=== PATIENT | female | born 1955 | race Caucasian/White ===

== ENCOUNTER 2017-01-01 07:26 | Emergency (ER) | payer OTHER ==
[~2017-01-01] VITALS: Ht 167.6 cm; Wt 60.3 kg
[~2017-01-01 07:26] MED LIST: CYCL5TAB PO; HORMONES; HYDR-2758 PO; KETO10TA PO; ONDA4TAB12 PO; THYR16.2 PO
--- NOTE | 2017-01-01 08:01 | PHYS DOC ---
Past History Past Medical History: Other Past Surgical History: Appendectomy, Tonsillectomy, Other Alcohol Use: None Drug Use: None Adult General Chief Complaint Chief Complaint: PAIN ON URINATION HPI HPI 61-year-old female presenting with suprapubic abdominal pain. She has a history of urinary tract infections. She reports having a urinary tract infection prior and was treated with Macrobid which she just finished. She continues to have symptoms of burning pain on urination and increased urinary frequency. She also reports vaginal itchiness. Review of systems is negative for chest pain shortness of breath fevers chills nausea vomiting. All other review of systems is negative unless otherwise noted in history of present illness. ED course: 61-year-old female presenting with suprapubic abdominal pain and signs and symptoms suggestive of urinary tract infection. Afebrile and otherwise vital signs are unremarkable. Patient was given Diflucan. Urinalysis obtained. The patient was then discharged home in stable condition to follow up with their primary care physician over the next 2-3 days. They were to return if their symptoms worsened or if they were concerned for any reason. Face-to- face discharge instructions and return precautions were given. Patient's questions were answered to their satisfaction. Patient is comfortable plan. Review of Systems Review of Systems SEE ABOVE. Current Medications Current Medications Current Medications Medications (Trade) Dose Ordered Sig/Robert Start Time Stop Time Status Last Admin Dose Admin Fluconazole (Diflucan) 150 mg 1X ONCE 01/01/17 08:00 01/01/17 08:01 UNV Allergies Allergies Allergies Coded Allergies Type Severity Reaction Last Updated Verified Sulfa (Sulfonamide Antibiotics) Allergy Intermediate 05/03/14 Yes latex Allergy Intermediate 12/01/14 Yes Physical Exam Physical Exam SEE ABOVE Constitutional: Well developed, well nourished, no acute distress, non-toxic appearance. [] HENT: Normocephalic, atraumatic, bilateral external ears normal, oropharynx moist, no oral exudates, nose normal. [] Eyes: PERRLA, EOMI, conjunctiva normal, no discharge. [] Neck: Normal range of motion, no tenderness, supple, no stridor. [] Cardiovascular:Heart rate regular rhythm, no murmur [] Lungs & Thorax: Bilateral breath sounds clear to auscultation [] Abdomen: Bowel sounds normal, soft, no tenderness, no masses, no pulsatile masses. nontender negative McBurney's point. Skin: Warm, dry, no erythema, no rash. [] Back: No tenderness, no CVA tenderness. [] Extremities: No tenderness, no cyanosis, no clubbing, ROM intact, no edema. [] Neurologic: Alert and oriented X 3, normal motor function, normal sensory function, no focal deficits noted. [] Psychologic: Affect normal, judgement normal, mood normal. [] EKG EKG [] Radiology/Procedures Radiology/Procedures [] Course & Med Decision Making Course & Med Decision Making Pertinent Labs and Imaging studies reviewed. (See chart for details) [] Dragon Disclaimer Dragon Disclaimer This electronic medical record was generated, in whole or in part, using a voice recognition dictation system. Departure Departure: Impression: Primary Impression: Dysuria Disposition: HOME, SELF-CARE Condition: STABLE Referrals: DORA PERRY MD (PCP) Additional Instructions: Thank you for allowing us to participate in your care today. Followup with your primary care physician in 3 days if your symptoms do not improve. Call your Primary Doctor tomorrow and inform them of your visit today. If you do not have a primary care provider you can ask for a list of our primary care providers. Return to the emergency department you have any new or concerning findings. This should be evaluated by the primary care physician and any necessary consulting services for continued management within a few days after discharge. Return to emergency room if you have any new or concerning symptoms including but not limited to fever, chills, nausea, vomiting, intractable pain, any new rashes, chest pain, shortness of air, uncontrolled bleeding, difficulty breathing, and/or vision loss. Scripts Cefdinir (CEFDINIR) 300 Mg Capsule 1 CAP PO BID, #14 CAP Prov: JIM HERNANDEZ MD 01/01/17 JIM HERNANDEZ MD Jan 01, 2017 08:01
[2017-01-01 08:09] LABS: BACTERIA,URINE FEW /HPF (0-FEW); BILIRUBIN,URINE NEG (NEG); CLARITY,URINE CLEAR; COLOR,URINE YELLOW; GLUCOSE,URINE NEG (NEG); NITRITE,URINE NEG (NEG); SQUAMOUS EPITHELIAL CELL,UR OCC /LPF; UROBILINOGEN,URINE 0.2 mg/dL (0.2 mg/dL)
[2017-01-01] MEDS ORDERED: FLUCONAZOLE 100 MG TABLET. PO ONE (08:15)
[2017-01-01] MEDS ORDERED: CEFD300C PO (08:15)
[2017-01-01 08:29] VITALS: BP 134/95
== END 2017-01-01 08:30 | disposition home or self-care (01) ==
LOC: ER 07:26
DX: R30.0 Dysuria (principal); R35.0 Frequency of micturition; R10.30 Lower abdominal pain, unspecified; Z90.49 Acquired absence of other specified parts of digestive tract; Z87.440 Personal history of urinary (tract) infections; Z88.2 Allergy status to sulfonamides; Z91.040 Latex allergy status
CPT/HCPCS: 81001; 99283

== ENCOUNTER 2017-09-19 18:02 | Emergency (ER) | payer OTHER ==
[~2017-09-19] VITALS: Ht 167.6 cm; Wt 59.9 kg
[~2017-09-19 18:02] MED LIST changes: +CEFD300C PO
--- NOTE | 2017-09-19 18:05 | ED.ADGEN ---
Past History Past Medical History: Hypothyroid, UTI, Other Past Surgical History: Appendectomy, Tonsillectomy, Other Alcohol Use: None Drug Use: None Adult General Chief Complaint Chief Complaint ".. I get urinary tract infections.. I have chronic cystitis... but I was trying not to take antibiotics... This all started on ... but my symptoms have gotten worse .. and much worse on Wednesday... but now every thing gil when I pee... and I got fevers and chills.. and I ache..." HPI HPI Patient is a 62 year old female who presents with above hx and complaints myalgia, malaise, arthralgia, dysuria and hx + UTI by home kit. Pt. has hx of chronic cystitis. Pt. Also give hx of porphyria, multiple parasitic disease, and frequent yeast infections. Patient denies any history of specific immunosuppression or HIV. No recent travel, or specific ill contacts.. Patient normally follows with Dr. Zamora, and Dr. Jasmine. Review of Systems Review of Systems Constitutional: History of fever or chills [] Eyes: Denies change in visual acuity, redness, or eye pain [] HENT: Denies nasal congestion or sore throat [] Respiratory: Denies cough or shortness of breath [] Cardiovascular: No additional information not addressed in HPI [] GI: History of abdominal pain, nausea,. Denies vomiting, bloody stools or diarrhea [] : History of dysuria or hematuria [] Musculoskeletal: Denies back pain or joint pain [] Integument: Denies rash or skin lesions [] Neurologic: Denies headache, focal weakness or sensory changes [] Endocrine: Denies polyuria or polydipsia [] All other systems were reviewed and found to be within normal limits, except as documented in this note. Family History Family History Noncontributory Current Medications Current Medications Current Medications Medications (Trade) Dose Ordered Sig/Robert Start Time Stop Time Status Last Admin Dose Admin Acetaminophen/ Hydrocodone Bitart (Lortab 5/325) 2 tab 1X ONCE 09/19/17 18:15 09/19/17 18:31 DC 09/19/17 18:55 2 TAB Ceftriaxone Sodium 1 gm/ Sodium Chloride 50 ml @ 100 mls/hr 1X ONCE 09/19/17 18:15 09/19/17 18:44 DC 09/19/17 18:53 100 MLS/HR Ceftriaxone Sodium (Rocephin) 1 gm STK-MED ONCE 09/19/17 18:47 09/19/17 18:49 DC Fluconazole (Diflucan) 100 mg 1X ONCE 09/19/17 18:30 09/19/17 18:31 DC Lactated Ringer's 1,000 ml @ 1,000 mls/hr Q1H 09/19/17 18:12 09/19/17 19:11 DC 09/19/17 18:34 1,000 MLS/HR Ondansetron HCl (Zofran) 4 mg 1X ONCE 09/19/17 18:15 09/19/17 18:31 DC 09/19/17 18:53 4 MG Sodium Chloride 50 ml @ As Directed STK-MED ONCE 09/19/17 18:47 09/19/17 18:48 DC Allergies Allergies Allergies Coded Allergies Type Severity Reaction Last Updated Verified Sulfa (Sulfonamide Antibiotics) Allergy Intermediate 05/03/14 Yes latex Allergy Intermediate 12/01/14 Yes Physical Exam Physical Exam Constitutional: Moderately acute distress, non-toxic appearance. [] HENT: Normocephalic, atraumatic, bilateral external ears normal, oropharynx moist, no oral exudates, nose normal. [] Eyes: PERRLA, EOMI, conjunctiva normal, no discharge. []Glasses Neck: Normal range of motion, no tenderness, supple, no stridor. [] Cardiovascular: Tachycardia Heart rate regular rhythm, no murmur [] Lungs & Thorax: Bilateral breath sounds equal at apexes to auscultation [] Abdomen: Bowel sounds normal, soft, lower pelvic tenderness, no masses, no pulsatile masses. [Surgery scar.. Declines rectal or vaginal exam at this time. Skin: Warm, dry, no erythema, no rash. [] Back: No tenderness, no CVA tenderness. [] Extremities: No tenderness, no cyanosis, no clubbing, ROM intact, no edema. [] Neurologic: Alert and oriented X 3, normal motor function, normal sensory function, no focal deficits noted. [] Psychologic: Anxious, judgement normal, mood normal. [] Current Patient Data Vital Signs Vital Signs Date Time Temp Pulse Resp B/P (MAP) Pulse Ox O2 Delivery O2 Flow Rate FiO2 09/19/17 19:31 99 16 139/44 (75) 97 Room Air 09/19/17 18:05 98.7 Lab Results Laboratory Tests Test 09/19/17 18:23 09/19/17 18:28 Urine Collection Type Unknown Urine Color Yellow Urine Clarity Cloudy Urine pH 7.0 Urine Specific [place] 1.010 Urine Protein Neg (NEG-TRACE) Urine Glucose (UA) Neg mg/dL (NEG) Urine Ketones (Stick) 40 mg/dL (NEG) Urine Blood Mod (NEG) Urine Nitrite Pos (NEG) Urine Bilirubin Neg (NEG) Urine Urobilinogen Dipstick 0.2 mg/dL (0.2 mg/dL) Urine Leukocyte Esterase Large (NEG) Urine RBC 3-5 /HPF (0-2) Urine WBC >40 /HPF (0-4) Urine Squamous Epithelial Cells Few /LPF Urine Bacteria Many /HPF (0-FEW) Urine Opiates Screen Neg (NEG) Urine Methadone Screen Neg (NEG) Urine Barbiturates Neg (NEG) Urine Phencyclidine Screen Neg (NEG) Urine Amphetamine/Methamphetamine Neg (NEG) Urine Benzodiazepines Screen Neg (NEG) Urine Cocaine Screen Neg (NEG) Urine Cannabinoids Screen Neg (NEG) Urine Ethyl Alcohol Neg (NEG) White Blood Count 8.9 x10^3/uL (4.0-11.0) Red Blood Count 4.80 x10^6/uL (3.50-5.40) Hemoglobin 15.6 g/dL (12.0-15.5) H Hematocrit 44.0 % (36.0-47.0) Mean Corpuscular Volume 92 fL (79-100) Mean Corpuscular Hemoglobin 33 pg (25-35) Mean Corpuscular Hemoglobin Concent 36 g/dL (31-37) Red Cell Distribution Width 12.9 % (11.5-14.5) Platelet Count 298 x10^3/uL (140-400) Neutrophils (%) (Auto) 68 % (31-73) Lymphocytes (%) (Auto) 24 % (24-48) Monocytes (%) (Auto) 7 % (0-9) Eosinophils (%) (Auto) 1 % (0-3) Basophils (%) (Auto) 0 % (0-3) Neutrophils # (Auto) 6.0 x10^3uL (1.8-7.7) Lymphocytes # (Auto) 2.1 x10^3/uL (1.0-4.8) Monocytes # (Auto) 0.6 x10^3/uL (0.0-1.1) Eosinophils # (Auto) 0.1 x10^3/uL (0.0-0.7) Basophils # (Auto) 0.0 x10^3/uL (0.0-0.2) Sodium Level 133 mmol/L (136-145) L Potassium Level 3.8 mmol/L (3.5-5.1) Chloride Level 94 mmol/L (98-107) L Carbon Dioxide Level 25 mmol/L (21-32) Anion Gap 14 (6-14) Blood Urea Nitrogen 13 mg/dL (7-20) Creatinine 0.6 mg/dL (0.6-1.0) Estimated GFR (Cockcroft-Gault) 101.0 Glucose Level 89 mg/dL (70-99) Calcium Level 9.4 mg/dL (8.5-10.1) Total Bilirubin 0.6 mg/dL (0.2-1.0) Direct Bilirubin 0.2 mg/dL (0.0-0.2) Aspartate Amino Transferase (AST) 21 U/L (15-37) Alanine Aminotransferase (ALT) 24 U/L (14-59) Alkaline Phosphatase 117 U/L (46-116) H Total Protein 8.3 g/dL (6.4-8.2) H Albumin 4.1 g/dL (3.4-5.0) EKG EKG [] Radiology/Procedures Radiology/Procedures [] Course & Med Decision Making Course & Med Decision Making Pertinent Labs and Imaging studies reviewed. (See chart for details). Take Keflex 500 mg 3 times a day for 10 days. At the completion of Keflex course take Diflucan 100 mg daily for 3 days. Push fluids. Push vitamin C drinks. Follow-up primary care. Return if any concerns. [] Final Impression Final Impression 1. Dysuria[]- UTI - Cystitis Dragon Disclaimer Dragon Disclaimer This electronic medical record was generated, in whole or in part, using a voice recognition dictation system. JEANNETTE LANGFORD MD Sep 19, 2017 18:05
[2017-09-19] MEDS ORDERED: IV RINGERS SOLUTION,LACTATED 1,000 ML IV SCH (18:12)
[2017-09-19] MEDS ORDERED: ONDANSETRON PF 4 MG/2 ML VIAL. IV ONE (18:15)
[2017-09-19] MEDS ORDERED: HYDROcodone/APAP 5/325MG 1 TAB TABLET PO ONE (18:15)
[2017-09-19] MEDS ORDERED: CEPH-264 PO (18:19)
[2017-09-19] MEDS ORDERED: FLUC100T7 PO (18:19)
[2017-09-19] MEDS ORDERED: FLUCONAZOLE 100 MG TABLET. PO ONE (18:30)
[2017-09-19 18:46] LABS: BASO % 0 % (0-3); EOS # 0.1 x10^3/uL (0.0-0.7); EOS % 1 % (0-3); HEMOGLOBIN 15.6 g/dL (12.0-15.5); LYMPH # 2.1 x10^3/uL (1.0-4.8); LYMPH % 24 % (24-48); MEAN CORPUSCULAR HEMOGLOBIN 33 pg (25-35); MEAN CORPUSCULAR HGB CONC 36 g/dL (31-37); MEAN CORPUSCULAR VOLUME 92 fL (79-100); MONO # 0.6 x10^3/uL (0.0-1.1); MONO % 7 % (0-9); NEUT % 68 % (31-73); PLATELET COUNT 298 x10^3/uL (140-400); RED CELL DISTRIBUTION WIDTH 12.9 % (11.5-14.5); WHITE BLOOD COUNT 8.9 x10^3/uL (4.0-11.0)
[2017-09-19] MEDS ORDERED: IV NORMAL SALINE 50ML 50 ML ONE (18:47)
[2017-09-19] MEDS ORDERED: cefTRIAXone SODIUM 1 GM VIAL IV ONE (18:47)
[2017-09-19 18:57] LABS: ALBUMIN 4.1 g/dL (3.4-5.0); CALCIUM 9.4 mg/dL (8.5-10.1); CREATININE 0.6 mg/dL (0.6-1.0); DIRECT BILIRUBIN 0.2 mg/dL (0.0-0.2); POTASSIUM 3.8 mmol/L (3.5-5.1); TOTAL BILIRUBIN 0.6 mg/dL (0.2-1.0); TOTAL PROTEIN 8.3 g/dL (6.4-8.2)
[2017-09-19 18:57] LABS: AMPHETAMINE/METHAMPHETAMINE NEG (NEG); BARBITURATES NEG (NEG); BENZODIAZEPINES NEG (NEG); CANNABINOIDS NEG (NEG); COCAINE NEG (NEG); METHADONE NEG (NEG); OPIATES NEG (NEG); PHENCYCLIDINE NEG (NEG)
[2017-09-19 19:06] LABS: COLOR,URINE YELLOW
[2017-09-19 19:07] LABS: BILIRUBIN,URINE NEG (NEG); CLARITY,URINE CLOUDY; GLUCOSE,URINE NEG (NEG); NITRITE,URINE POS (NEG); UROBILINOGEN,URINE 0.2 mg/dL (0.2 mg/dL); WBC,URINE >40 /HPF (0-4)
[2017-09-19 19:08] LABS: BACTERIA,URINE MANY /HPF (0-FEW); SQUAMOUS EPITHELIAL CELL,UR FEW /LPF
[2017-09-19 19:31] VITALS: BP 139/44
== END 2017-09-19 19:35 | disposition home or self-care (01) ==
LOC: ER 18:02
DX: N30.90 Cystitis, unspecified without hematuria (principal); E03.9 Hypothyroidism, unspecified; M79.1 Myalgia; M25.50 Pain in unspecified joint; Z87.440 Personal history of urinary (tract) infections; Z88.2 Allergy status to sulfonamides; Z91.040 Latex allergy status
CPT/HCPCS: 36415; 80048; 80076; 80307; 81001; 85025; 87040; 87086; 96365; 96375; 99284; J0696; J2405; J7120; G0479

== ENCOUNTER → 2018-06-16 | Outpatient (CLI) | payer OTHER ==
[~2018-06-16] MED LIST changes: +CEPH-264 PO; +FLUC100T7 PO; +HYDR-2155 PO; -HYDR-2758 PO
--- NOTE | 2018-06-16 17:41 | RAD ---
3 view study of the right ribs and PA view chest x-ray Clinical indications: Right rib pain status post fall downstairs. FINDINGS: No acute right rib fracture is evident. Chest x-ray demonstrates no acute lung infiltrate or pleural effusion or pulmonary edema or pneumothorax. The heart size and pulmonary vasculature and mediastinum and both cyrus are unremarkable. Scoliosis is seen. IMPRESSION: No acute right rib fracture or acute radiographic abnormality. Electronically signed by: Jean Carlos Valladares MD (06/16/2018 5:39 PM) [place] [id number]
== END | disposition home or self-care (01) ==
LOC: RAD 10:19
PROVIDERS: ATTEND Registered Nurse
DX: S20.211A Contusion of right front wall of thorax, initial encounter (principal); M41.84 Other forms of scoliosis, thoracic region; W10.8XXA Fall (on) (from) other stairs and steps, initial encounter; Y93.89 Activity, other specified; Y92.89 Other specified places as the place of occurrence of the external cause; Y99.8 Other external cause status
CPT/HCPCS: 71101

== ENCOUNTER → 2018-07-13 | Outpatient (CLI) | payer OTHER ==
--- NOTE | 2018-07-13 11:27 | RAD ---
EXAM: CT abdomen without contrast. HISTORY: Liver lesion. TECHNIQUE: CT of the abdomen was performed without intravenous contrast. COMPARISON: 05/03/2014. FINDINGS: Images of the lung bases reveal a 3 mm uncalcified pleural-based nodule in the left lower lobe. This is stable chronically and likely benign. Bone windows reveal no suspicious lesions. A fluid density lesion in hepatic segment 7 centrally measures 2.8 x 2.4 cm. This is increased from 1.9 x 1.7 cm previously, but a benign cyst is favored. Additional small fluid density lesions in segments 4A and 8 have also increased in size, but are typical of cysts without contrast. These measure up to 1.5 cm. Another 5 mm lesion on image 25 adjacent to the capsule of segment 8 appears stable. A correlate for the small enhancing lesion in segment 6 noted on the prior study is seen on axial image 40, measures 6 mm and is not clearly changed. The kidneys, spleen, adrenal glands, gallbladder and pancreas are unremarkable. Stool throughout the colon is consistent with constipation. There are no pathologically enlarged lymph nodes. IMPRESSION: 1. Multiple hepatic lesions are incompletely characterized without contrast, but most likely represent benign cysts and hemangiomas in the absence of known malignancy. The largest have increased in size slowly over 4 years and measure up to 2.8 cm. MRI with and without contrast could more definitively characterize if there is persistent concern. 2. Correlate for constipation. *One or more of the following individualized dose reduction techniques were utilized for this examination: 1. Automated exposure control. 2. Adjustment of the mA and/or kV according to patient size. 3. Use of iterative reconstruction technique. Electronically signed by: Roger Duarte MD (07/13/2018 11:24 AM) [facility]
== END | disposition home or self-care (01) ==
LOC: CT 07:44
PROVIDERS: ATTEND Family Medicine
DX: K76.9 Liver disease, unspecified (principal); K59.00 Constipation, unspecified; Z85.05 Personal history of malignant neoplasm of liver
CPT/HCPCS: 74150

== ENCOUNTER 2018-11-02 20:59 | Emergency (ER) | payer OTHER ==
[~2018-11-02] VITALS: Ht 167.6 cm; Wt 61.7 kg
[2018-11-02 21:20] VITALS: BP 147/90
--- NOTE | 2018-11-02 21:45 | RAD ---
Three-view left foot dated 11/02/2018. No comparison available. CLINICAL INDICATION: Pain after injury. FINDINGS: 3 views left foot show normal bony alignment. There is an oblique fracture through the shaft of the fourth proximal phalanx, not significantly displaced. No additional fractures are seen. Mild pes cavus deformity. IMPRESSION: Oblique fracture through the shaft of the fourth proximal phalanx, not significantly displaced. Electronically signed by: Reginald Smith MD (11/02/2018 9:41 PM) [facility]
[2018-11-02] MEDS ORDERED: HYDR-3165 PO (22:49)
--- NOTE | 2018-11-02 22:50 | PHYS DOC ---
Past History Past Medical History: Fibromyalgia, Hypothyroid, Other Additional Past Medical Histor: OSTEOARTHRITIS, INTERSTITIAL CYCTITIS, VITAMIN D DEFICIENCY Past Surgical History: No Surgical History Alcohol Use: None Drug Use: None Adult General Chief Complaint Chief Complaint: FOOT INJURY PAIN HPI HPI Patient is a 63 year old female who presents with complaint of left fourth toe pain. Patient states that she had a stumbling incident at approximately 1230 earlier in the day prior to arrival. She states that she accidentally tripped over a shoe which caused her foot to bend forward and her toes on the left foot to bend backward. Notes that since this occurred, she is been having continued pain with increasing swelling and bruising specifically to the left fourth toe. Due to worsening pain in swelling, the patient states that she is concerned she may have broken her toe and thus came to the emergency department for further evaluation. States that she is having difficulty ambulating because of pain in the left foot. Review of Systems Review of Systems Constitutional: Denies fever or chills [] Musculoskeletal: Left fourth toe pain and swelling[] Integument: Denies rash or skin lesions [] Neurologic: Denies headache, focal weakness or sensory changes [] All other systems were reviewed and found to be within normal limits, except as documented in this note. Allergies Allergies Allergies Coded Allergies Type Severity Reaction Last Updated Verified Sulfa (Sulfonamide Antibiotics) Allergy Intermediate 05/03/14 Yes latex Allergy Intermediate 12/01/14 Yes Physical Exam Physical Exam Constitutional: Well developed, well nourished, no acute distress, non-toxic appearance. [] Skin: Warm, dry, no erythema, no rash. [] Extremities: Left fourth toe with moderate soft tissue swelling and extensive ecchymosis, range of motion not tested secondary to pain, mid foot and heel are nontender with no obvious deformity. [] Neurologic: Alert and oriented X 3, normal motor function, normal sensory function, no focal deficits noted. [] Current Patient Data Vital Signs Vital Signs Date Time Temp Pulse Resp B/P (MAP) Pulse Ox O2 Delivery O2 Flow Rate FiO2 11/02/18 21:20 98.3 104 20 98 Room Air Lab Results Not performed EKG EKG Not performed[] Radiology/Procedures Radiology/Procedures [address] [address] IMAGING REPORT Signed PATIENT: NICK KAPOOR ACCOUNT: [id number] : 1955 LOCATION: ER AGE: 63 SEX: F EXAM STATUS: PRE ER ORD. PHYSICIAN: MARTITA MONTANO MD REASON: Left foot injury, pain to 3rd-5th digits radiating into foot PROCEDURE: FOOT LEFT 3V Three-view left foot dated 11/02/2018. No comparison available. CLINICAL INDICATION: Pain after injury. FINDINGS: 3 views left foot show normal bony alignment. There is an oblique fracture through the shaft of the fourth proximal phalanx, not significantly displaced. No additional fractures are seen. Mild pes cavus deformity. IMPRESSION: Oblique fracture through the shaft of the fourth proximal phalanx, not significantly displaced. Electronically signed by: Reginald Smith MD (11/02/2018 9:41 PM) [facility] DICTATED AND SIGNED BY: REGINALD SMITH MD DATE: 11/02/182140 CC: MARTITA MONTANO MD; DORA PERRY MD ~ [] Course & Med Decision Making Course & Med Decision Making Pertinent Labs and Imaging studies reviewed. (See chart for details) X-rays confirm oblique fracture of the proximal phalanx of the fourth digit on the left foot. This toe was isabelle taped to the third digit. Patient given hard soled orthopedic shoe and provided with crutches to help assist with ambulation. Treated with oral [place] and provided prescription for continued treatment as outpatient. Advised follow-up with podiatry in the next 7-10 days for reevaluation. Advised return to emergency department for any worsening symptoms. Patient was understanding and in agreement with treatment plan.[] Dragon Disclaimer Dragon Disclaimer This electronic medical record was generated, in whole or in part, using a voice recognition dictation system. Departure Departure: Impression: Primary Impression: Toe fracture Disposition: 01 HOME, SELF-CARE Condition: STABLE Referrals: [facility] DORA PERRY MD (PCP) Patient Instructions: Toe Fracture Additional Instructions: Follow-up with podiatry in 7-10 days for reevaluation. Return to the emergency department for any worsening symptoms. Scripts Hydrocodone Bit/Acetaminophen (NORCO 5-325 TABLET) 1 Each Tablet 1 TAB PO Q4-6HRS PRN for PAIN, #20 TAB Prov: MARTITA MONTANO MD 11/02/18 Problem Qualifiers Primary Impression: Toe fracture Encounter type: initial encounter Toe: lesser toe Fracture type: closed Phalanx: proximal Fracture alignment: displaced Laterality: left Ty lified Codes: S92.512A - Displaced fracture of proximal phalanx of left lesser toe(s), initial encounter for closed fracture MARTITA MONTANO MD Nov 02, 2018 22:50
[2018-11-02] MEDS ORDERED: HYDROcodone/APAP 5/325MG 1 TAB TABLET PO ONE (23:00)
== END 2018-11-02 23:00 | disposition home or self-care (01) ==
LOC: ER 20:59
DX: S92.512A Displaced fracture of proximal phalanx of left lesser toe(s), initial encounter for closed fracture (principal); M79.7 Fibromyalgia; E03.9 Hypothyroidism, unspecified; M19.90 Unspecified osteoarthritis, unspecified site; Z88.2 Allergy status to sulfonamides; Z91.040 Latex allergy status; W22.8XXA Striking against or struck by other objects, initial encounter; Y93.89 Activity, other specified; Y92.89 Other specified places as the place of occurrence of the external cause; Y99.8 Other external cause status
CPT/HCPCS: 73630; 99284

== ENCOUNTER → 2020-02-21 | Outpatient (CLI) | payer MEDICARE, OTHER ==
[~2020-02-21] MED LIST changes: +HYDR-3165 PO
--- NOTE | 2020-02-21 09:51 | RAD ---
CT HEAD/BRAIN WO Date: 02/21/2020 9:00 AM Clinical Indication: Reason: MIGRAINE SINCE WEDNESDAY, NAUSEA, VERTIGO, SYNCOPE / Spl. Instructions: / History: Comparison: None. Technique: 5 mm axial tomographic images were obtained of the head without contrast. These were view ed on brain and bone windows. One or more of the following dose reduction techniques were utilized: A utomated exposure control (AEC), Adjustment of mA and/or kV according to patient size, Use of iterati ve reconstruction technique such as ASiR, CT scan done according to ALARA and image gently/image toro ly Findings: The brain parenchyma is normal in attenuation. No intra- or extra-axial mass or fluid collection. No acute hemorrhage. The ventricles are normal in size, shape, and morphology. The haley-white matter eduardo ction is normal. The subarachnoid cisterns are patent. The visualized paranasal sinuses are normal. The visualized portions of the orbits and globes are no rmal. The mastoid air cells are clear. The substitute crossing guard topogram shows no lytic lesion or fracture. Impression: No acute intracranial process. Electronically signed by: Dejuan Quezada MD (02/21/2020 9:48 AM) [id number]
== END ==
LOC: CT 08:45
PROVIDERS: ATTEND Nurse Practitioner Family
DX: G43.909 Migraine, unspecified, not intractable, without status migrainosus (principal); R42 Dizziness and giddiness; R11.0 Nausea
CPT/HCPCS: 70450